=== PATIENT | male | born 1960 | race Caucasian/White ===

== ENCOUNTER → 2016-04-10 | Outpatient (CLI) | payer BC ==
[~2016-04-10] MED LIST: AMOXICILLIN 8751 TAB PO; CARAFATE S1 GM/10 ML PO; NEXIUM 40MG40 MG PO; NORCO 325 MG-51 TAB PO; PERCOCET 325 MG1 TA2 PO; PHENERGAN 25 TA25 MG PO; PRILOTC PO
== END ==
LOC: COL.RAD 08:00
DX: K21.9 Gastro-esophageal reflux disease without esophagitis (principal); R14.2 Eructation; R11.10 Vomiting, unspecified; R14.0 Abdominal distension (gaseous)
CPT/HCPCS: A9541